=== PATIENT | female | born 1980 | race Caucasian/White ===

== ENCOUNTER 2016-09-14 20:01 | Emergency (ER) | payer MEDICAID ==
[2016-09-14 23:37] LABS: HEMATOCRIT 42.8 % (36.0-48.0); HEMOGLOBIN 14.6 g/dL (12-16); LYMPHOCYTES 33.8 % (15-50); MCH 31.5 pg (26.0-34.0); MCHC 34.1 g/dL (31.0-37.0); MCV 92.4 fL (80.0-100.0); MEAN PLATELET VOLUME 12.9 fL (7.4-10.4); NEUTROPHILS 57.9 % (40-80); PLATELET COUNT 156 10x3/uL (130-400); RBC 4.63 10x6/uL (4.00-5.40); RDW 13.1 % (11.5-14.5); WBC 5.3 10x3/uL (4.8-10.8)
[2016-09-14 23:41] LABS: CALC OSMOLALITY 278 mosm/kg (275-300); CALCIUM 8.3 mg/dL (8.5-10.1); CARBON DIOXIDE 27.6 mmol/L (21.0-32.0); CHLORIDE - SERUM 104 mmol/L (98-107); CREATININE - SERUM 0.8 mg/dL (0.6-1.3); GLUCOSE 95 mg/dL (74-106); POTASSIUM - SERUM 3.7 mmol/L (3.5-5.1); SODIUM 140 mmol/L (136-145); UREA NITROGEN 12 mg/dL (7-18); eGFR NON AFRICAN AMERICAN 86 mL/min (90-120)
[2016-09-14 23:44] LABS: APTT 23.1 SECONDS (22.8-39.4); INR 0.97 (0.85-1.17); PROTIME 12.7 SECONDS (11.6-15.0)
== END 2016-09-15 00:12 | disposition home or self-care (01) ==
LOC: D.ER 20:01
PROVIDERS: Emergency Medicine Emergency Medical Services
DX: G62.9 Polyneuropathy, unspecified (principal); R13.10 Dysphagia, unspecified; R53.1 Weakness; F17.200 Nicotine dependence, unspecified, uncomplicated

== ENCOUNTER 2016-11-26 19:31 | Emergency (ER) | payer MEDICAID | END 2016-11-26 20:55 | disposition home or self-care (01) | LOC: D.ER 19:31 | DX: S16.1XXA Strain of muscle, fascia and tendon at neck level, initial encounter (principal); X58.XXXA Exposure to other specified factors, initial encounter; Y93.89 Activity, other specified; Y92.029 Unspecified place in mobile home as the place of occurrence of the external cause; M62.838 Other muscle spasm; F17.200 Nicotine dependence, unspecified, uncomplicated ==

== ENCOUNTER 2016-12-03 21:30 | Emergency (ER) | payer MEDICAID | END 2016-12-03 23:00 | disposition home or self-care (01) | LOC: D.ER 21:30 | DX: S80.12XA Contusion of left lower leg, initial encounter (principal); W19.XXXA Unspecified fall, initial encounter; Y93.89 Activity, other specified; Y92.029 Unspecified place in mobile home as the place of occurrence of the external cause; S80.812A Abrasion, left lower leg, initial encounter; Z86.73 Personal history of transient ischemic attack (TIA), and cerebral infarction without residual deficits; F17.200 Nicotine dependence, unspecified, uncomplicated ==

== ENCOUNTER 2017-01-14 17:49 | Emergency (ER) | payer MEDICAID ==
[2017-01-14 18:32] LABS: BASOPHILS 0.3 % (0-2); EOSINOPHILS 2.5 % (0-7); HEMATOCRIT 44.8 % (36.0-48.0); HEMOGLOBIN 14.9 g/dL (12-16); IMMATURE GRANULOCYTES 0.2 % (0-5); MCH 31.9 pg (26.0-34.0); MCHC 33.3 g/dL (31.0-37.0); MCV 95.9 fL (80.0-100.0); MEAN PLATELET VOLUME 13.5 fL (7.4-10.4); MONOCYTES 5.6 % (2-11); NEUTROPHILS 70.4 % (40-80); PLATELET COUNT 181 10x3/uL (130-400); RBC 4.67 10x6/uL (4.00-5.40); RDW 12.8 % (11.5-14.5)
[2017-01-14 18:40] LABS: APPEARANCE CLOUDY (CLEAR); BILIRUBIN NEGATIVE (NEGATIVE); COLOR YELLOW (YELLOW); GLUCOSE NEGATIVE (NEGATIVE); KETONE NEGATIVE (NEGATIVE); NITRITE POSITIVE (NEGATIVE); PROTEIN NEGATIVE (NEGATIVE); SPECIFIC GRAVITY 1.005 (1.005-1.020); UROBILINOGEN NORMAL (NORMAL)
[2017-01-14 18:42] LABS: BACTERIA FEW /hpf (NONE SEEN); EPITHELIAL CELLS 0-5 /hpf (0-5)
[2017-01-14 18:49] LABS: ALKALINE PHOSPHATASE 86 U/L (46-116); ALT (SGPT) 104 U/L (10-68); BILIRUBIN - TOTAL 0.32 mg/dL (0.2-1.3); CALC OSMOLALITY 280 mosm/kg (275-300); CALCIUM 9.1 mg/dL (8.5-10.1); CARBON DIOXIDE 28.1 mmol/L (21.0-32.0); CHLORIDE - SERUM 105 mmol/L (98-107); CREATININE - SERUM 0.8 mg/dL (0.6-1.3); GLUCOSE 94 mg/dL (74-106); POTASSIUM - SERUM 4.9 mmol/L (3.5-5.1); PROTEIN - SERUM 7.3 g/dL (6.4-8.2); SODIUM 141 mmol/L (136-145); UREA NITROGEN 13 mg/dL (7-18); eGFR NON AFRICAN AMERICAN 85 mL/min (90-120)
== END 2017-01-14 19:10 | disposition home or self-care (01) ==
LOC: D.ER 17:49
PROVIDERS: Family Medicine
DX: N39.0 Urinary tract infection, site not specified (principal); R11.2 Nausea with vomiting, unspecified; F17.200 Nicotine dependence, unspecified, uncomplicated

== ENCOUNTER 2017-02-25 17:35 | Emergency (ER) | payer MEDICAID | END 2017-02-25 19:34 | disposition home or self-care (01) | LOC: D.ER 17:35 | DX: L02.213 Cutaneous abscess of chest wall (principal); L03.313 Cellulitis of chest wall; R51 Headache; F17.200 Nicotine dependence, unspecified, uncomplicated ==

== ENCOUNTER 2017-07-06 21:59 | Emergency (ER) | payer MEDICAID ==
[2017-07-06 22:47] LABS: APPEARANCE CLEAR (CLEAR); BILIRUBIN NEGATIVE (NEGATIVE); COLOR YELLOW (YELLOW); GLUCOSE NEGATIVE (NEGATIVE); KETONE NEGATIVE (NEGATIVE); NITRITE NEGATIVE (NEGATIVE); PROTEIN NEGATIVE (NEGATIVE); UROBILINOGEN NORMAL (NORMAL)
== END 2017-07-06 23:37 | disposition home or self-care (01) ==
LOC: D.ER 21:59
PROVIDERS: Family Medicine
DX: M54.5 Low back pain (principal); M62.838 Other muscle spasm

== ENCOUNTER 2017-08-25 21:01 | Emergency (ER) | payer MEDICAID ==
[~2017-08-25] VITALS: Ht 165.1 cm; Wt 100.0 kg
[2017-08-25 21:11] VITALS: Ht 165.1 cm; Wt 100.0 kg
[2017-08-25] MEDS ORDERED: BACTRIM DS TABL1 TAB PO (22:26)
[2017-08-25] MEDS ORDERED: ULTRAM50 MG PO (22:26)
[2017-08-25 22:42] VITALS: BP 142/83
== END 2017-08-25 22:43 | disposition home or self-care (01) ==
LOC: D.ER 21:01
DX: L02.818 Cutaneous abscess of other sites (principal); F17.200 Nicotine dependence, unspecified, uncomplicated

== ENCOUNTER 2017-09-09 02:04 | Emergency (ER) | payer MEDICAID ==
[~2017-09-09] VITALS: Ht 165.1 cm; Wt 104.5 kg
[~2017-09-09 02:04] MED LIST: BACTRIM DS TABL1 TAB PO; ULTRAM50 MG PO
[2017-09-09 02:14] VITALS: Ht 165.1 cm; Wt 104.5 kg
[2017-09-09] MEDS ORDERED: NORCO 7.5/325 T1 TA1 PO (03:24)
[2017-09-09 03:35] VITALS: BP 131/91
== END 2017-09-09 03:35 | disposition home or self-care (01) ==
LOC: D.ER 02:04
DX: S93.402A Sprain of unspecified ligament of left ankle, initial encounter (principal); W13.3XXA Fall through floor, initial encounter; Y93.89 Activity, other specified; Y92.018 Other place in single-family (private) house as the place of occurrence of the external cause; F17.200 Nicotine dependence, unspecified, uncomplicated

== ENCOUNTER 2018-02-21 20:25 | Emergency (ER) | payer MEDICAID ==
[~2018-02-21] VITALS: Ht 165.1 cm; Wt 90.7 kg
[~2018-02-21 20:25] MED LIST changes: +NORCO 7.5/325 T1 TA1 PO
[2018-02-21 20:34] VITALS: Ht 165.1 cm; Wt 90.7 kg
[2018-02-21] MEDS ORDERED: SUMATRIPTAN SUC25 MG PO (23:10)
[2018-02-21 23:32] VITALS: BP 137/90
== END 2018-02-21 23:33 | disposition home or self-care (01) ==
LOC: D.ER 20:25
DX: G43.909 Migraine, unspecified, not intractable, without status migrainosus (principal); R11.2 Nausea with vomiting, unspecified; F17.200 Nicotine dependence, unspecified, uncomplicated

== ENCOUNTER 2018-03-23 22:14 | Emergency (ER) | payer MEDICAID ==
[~2018-03-23] VITALS: Ht 165.1 cm; Wt 90.9 kg
[~2018-03-23 22:14] MED LIST changes: +SUMATRIPTAN SUC25 MG PO
[2018-03-23 22:36] VITALS: Ht 165.1 cm; Wt 90.9 kg
[2018-03-23 23:11] LABS: BASOPHILS 0.4 % (0-2); EOSINOPHILS 1.8 % (0-7); HEMATOCRIT 42.4 % (36.0-48.0); HEMOGLOBIN 14.4 g/dL (12-16); LYMPHOCYTES 26.1 % (15-50); MCH 32.3 pg (26.0-34.0); MCV 95.1 fL (80.0-100.0); MEAN PLATELET VOLUME 11.8 fL (7.4-10.4); MONOCYTES 7.2 % (2-11); NEUTROPHILS 64.5 % (40-80); PLATELET COUNT 196 10x3/uL (130-400); RBC 4.46 10x6/uL (4.00-5.40); RDW 12.9 % (11.5-14.5); WBC 5.5 10x3/uL (4.8-10.8)
[2018-03-23 23:21] LABS: APPEARANCE HAZY (CLEAR); BILIRUBIN NEGATIVE (NEGATIVE); COLOR YELLOW (YELLOW); GLUCOSE NEGATIVE (NEGATIVE); KETONE NEGATIVE (NEGATIVE); NITRITE POSITIVE (NEGATIVE); PROTEIN NEGATIVE (NEGATIVE); SPECIFIC GRAVITY 1.015 (1.005-1.020); UROBILINOGEN NORMAL (NORMAL)
[2018-03-23 23:22] LABS: ALBUMIN 3.5 g/dL (3.4-5.0); ALKALINE PHOSPHATASE 51 U/L (46-116); ALT (SGPT) 17 U/L (10-68); BILIRUBIN - TOTAL 0.43 mg/dL (0.2-1.3); CALC OSMOLALITY 278 mosm/kg (275-300); CALCIUM 8.2 mg/dL (8.5-10.1); CARBON DIOXIDE 26.6 mmol/L (21.0-32.0); CHLORIDE - SERUM 104 mmol/L (98-107); CREATININE - SERUM 0.8 mg/dL (0.6-1.3); GLUCOSE 73 mg/dL (74-106); SODIUM 140 mmol/L (136-145); UREA NITROGEN 14 mg/dL (7-18); eGFR NON AFRICAN AMERICAN 85 mL/min (90-120)
[2018-03-23 23:23] LABS: BACTERIA MANY /hpf (NONE SEEN); EPITHELIAL CELLS 0-5 /hpf (0-5); RED CELLS - URINE 0-5 /hpf (0-5); WHITE CELLS - URINE 0-5 /hpf (0-5)
[2018-03-23 23:25] LABS: AMYLASE - SERUM 35 U/L (25-115); LIPASE 110 U/L (73-393)
[2018-03-23 23:28] LABS: TROPONIN-I < 0.017 ng/mL (0.000-0.060)
[2018-03-24] MEDS ORDERED: KEFLEX500 MG PO (00:12)
[2018-03-24] MEDS ORDERED: ZOFRAN ODT4 MG/UDTAB PO (00:12)
[2018-03-24 00:38] VITALS: BP 144/80
== END 2018-03-24 00:38 | disposition home or self-care (01) ==
LOC: D.ER 22:14
PROVIDERS: Family Medicine
DX: N39.0 Urinary tract infection, site not specified (principal); R11.10 Vomiting, unspecified; R31.9 Hematuria, unspecified; R30.0 Dysuria; F17.200 Nicotine dependence, unspecified, uncomplicated

== ENCOUNTER 2018-07-17 14:30 | Emergency (ER) | payer MEDICAID ==
[~2018-07-17] VITALS: Ht 165.1 cm; Wt 90.9 kg
[2018-07-17 14:30] VITALS: Ht 165.1 cm; Wt 90.9 kg
[~2018-07-17 14:30] MED LIST changes: +KEFLEX500 MG PO; +ZOFRAN ODT4 MG/UDTAB PO
[2018-07-17] MEDS ORDERED: ROBAXIN500 MG PO (15:59)
[2018-07-17 16:15] VITALS: BP 135/98
== END 2018-07-17 16:15 ==
LOC: D.ER 14:30
DX: S39.012A Strain of muscle, fascia and tendon of lower back, initial encounter (principal); V43.62XA Car passenger injured in collision with other type car in traffic accident, initial encounter; Y93.89 Activity, other specified; Y92.410 Unspecified street and highway as the place of occurrence of the external cause; R51 Headache